=== PATIENT | female | born 1940 | race Caucasian/White ===

== ENCOUNTER 2018-12-31 20:06 | Emergency (ER) | payer MEDICARE ==
[2018-12-31] MEDS ORDERED: 0.9 % SODIUM CHLORIDE 1,000 ML BAG IV ONE (20:10)
[2018-12-31 20:16] LABS: BASO % 0.4 % (0-6); EOS % 0.6 % (0-6); GRAN % 61.2 % (47-80); HEMOGLOBIN 14.9 gm/dl (11.6-16.0); LYMPH % 25.8 % (16-45); MEAN CELL VOLUME 87.5 fl (81-97); MEAN CORPUSCULAR HEMOGLOBIN 29.6 pg (27-33); MEAN CORPUSCULAR HGB CONC 33.9 g/dl (32-36); MEAN PLATELET VOLUME 9.7 fl (7.4-10.4); PLATELET COUNT 260 K/uL (130-400); RED BLOOD COUNT 5.03 M/uL (3.80-5.40); RED CELL DISTRIBUTION WIDTH 14.4 % (11.5-14.5); WHITE BLOOD COUNT W/O DIFF 10.1 K/uL (4.2-12.2)
--- NOTE | 2018-12-31 20:23 | Emergency Department Record ---
History of Present Illness - General Chief Complaint: Syncope Stated Complaint: NEARLY FAINTED Time Seen by Provider: 12/31/18 20:10 Source: Patient, Family Mode of Arrival: EMS Limitations: No limitations - History of Present Illness Initial Comments: The patient is here due to becoming weak and lightheaded at a wedding this evening. She has been outside in the heat for some time and then was sitting when she became lightheaded. Per witnesses the patient suddenly become pale, her eyes rolled back and she had a brief seizure while sitting. The patient did not fall and then she seemed to have mild R sided weakness for 2-3 minutes. Bystanders called 911 and by the time EMS arrived the patient was awake, alert with no focal deficits. The patient believes she was just in the heat to long and had not drank much fluid. There was never any speech issues, TENORIO, CP or SOB. The patient has had similar issues with R sided weakness briefly in the past but did not have it evaluated. MD Complaint: Nazlini faint Onset/Timin -: Minutes(s) Prodromal Symptoms: None Injuries Sustained Associated with Event: None Current Symptoms: None Treatments Prior to Arrival: None - [place] Coma Scale Eye Response: (4) Open spontaneously Motor Response: (6) Obeys commands Verbal Response: (5) Oriented Elena Total: 15 - Related Data Home Medications Medication Instructions Recorded Confirmed Last Taken Metoprolol Tartrate 25 mg PO BID 12/31/18 12/31/18 12/31/18 Ranitidine HCl [Zantac] 150 mg PO DAILY 12/31/18 12/31/18 12/31/18 Allergies Allergy/AdvReac Type Severity Reaction Status Date / Time sulfamethoxazole Allergy RASH Verified 12/31/18 20:18 [From Bactrim] trimethoprim [From Bactrim] Allergy RASH Verified 12/31/18 20:18 Travel Screening - Travel/Exposure Within Last 30 Days Have you traveled within the last 30 days?: No - Travel/Exposure Within Last Year Have you traveled outside the [place] in the last year?: No - Additonal Travel Details Have you been exposed to anyone with a communicable illness?: No - Travel Symptoms Symptom Screening: None Review of Systems Constitutional: Denies: Chills, Fever Eyes: Denies: Eye discharge ENT: Denies: Congestion Respiratory: Denies: Cough, Dyspnea Cardiovascular: Denies: Chest pain Endocrine: Reports: Fatigue Gastrointestinal: Denies: Nausea Genitourinary: Denies: Dysuria Musculoskeletal: Denies: Arthralgia Skin: Denies: Bruising Past Medical History - SOCIAL HISTORY Smoking Status: Never smoker Alcohol Use: None Drug Use: None - RESPIRATORY Hx Respiratory Disorders: No - CARDIOVASCULAR Hx Cardio Disorders: Yes Hx Hypertension: Yes - NEURO Hx Neuro Disorders: No - GI Hx GI Disorders: No - Hx Genitourinary Disorders: No - ENDOCRINE Hx Endocrine Disorders: No - MUSCULOSKELETAL Hx Musculoskeletal Disorders: No - PSYCH Hx Psych Problems: No - HEMATOLOGY/ONCOLOGY Hx Hematology/Oncology Disorders: No Family Medical History Any Significant Family History?: No Physical Exam - General General Appearance: Alert, Oriented x3, Cooperative, No acute distress - Head Head exam: Atraumatic, Normocephalic, Normal inspection - Eye Eye exam: Normal appearance, PERRL, EOMI - ENT ENT exam: Normal exam Throat exam: Normal inspection. negative: Tonsillar erythema, Tonsillar exudate - Neck Neck exam: Normal inspection, Full ROM. negative: Tenderness - Respiratory Respiratory exam: Normal lung sounds bilaterally. negative: Respiratory distress - Cardiovascular Cardiovascular Exam: Regular rate, Normal rhythm, Normal heart sounds. negative: Diastolic murmur, Systolic murmur - GI/Abdominal GI/Abdominal exam: Soft, Normal bowel sounds. negative: Tenderness - Extremities Extremities exam: Normal inspection, Full ROM, Normal capillary refill. negative: Tenderness - Back Back exam: Reports: Normal inspection - Neurological Neurological exam: Alert, CN II-XII intact, Normal gait, Oriented X3, Other (Neg Drift and Rhomberg.). negative: Abnormal gait, Altered, Motor sensory deficit - Psychiatric Psychiatric exam: negative: Anxious - Skin Skin exam: negative: Rash Course Vital Signs 12/31/18 20:09 Temperature 97.8 F Pulse Rate [ 94 H Pulse Ox Probe] Respiratory 20 Rate Blood Pressure 107/64 [Left Arm] Pulse Ox 95 - Reevaluation(s) Reevaluation #1: The patient is doing very well at this time. She is still back to normal and neuro intact. I did recommend hospital transfer for a TIA workup and the patient agreed with the plan. I then did discuss the case with Dr. May at [facility] and she did accept the patient in transfer. 12/31/18 22:00 Medical Decision Making - Data Complexity MDM Data: Labs Ordered and/or Reviewed, X-Ray Ordered and/or Reviewed, EKG Ordered and/or Reviewed - Lab Data Result diagrams: 12/31/18 19:59 12/31/18 19:59 Lab Results 12/31/18 Range/Units 19:59 WBC 10.1 (4.2-12.2) K/uL RBC 5.03 (3.80-5.40) M/uL Hgb 14.9 (11.6-16.0) gm/dl Hct 44.0 (35.0-47.0) % MCV 87.5 (81-97) fl MCH 29.6 (27-33) pg MCHC 33.9 (32-36) g/dl RDW 14.4 (11.5-14.5) % Plt Count 260 (130-400) K/uL MPV 9.7 (7.4-10.4) fl Gran % 61.2 (47-80) % Lymphocytes % 25.8 (16-45) % Monocytes % 12.0 H (0-9) % Eosinophils % 0.6 (0-6) % Basophils % 0.4 (0-6) % Absolute Neutrophils 6.20 - EKG Data -: EKG Interpreted by Al EKG: No Acute Changes, Normal EKG (poss mild AL interval prolongation.) - Radiology Data Radiology results: Report reviewed (Head CT: Neg for acute changes. nonspecific small vessel ischemic changes, fluid in sinuses.) Disposition Disposition: Transfer Clinical Impression: TIA (transient ischemic attack) Disposition: Acute Care Hospital Transfer Transfer To: [facility] Reason For Transfer: Neurology Accepting Physician: Lalo Time Discussed w/Accepting Physician: 22:02 Condition: (2) Stable Forms: Patient Portal Access Time of Disposition: 22:02 Quality - Quality Measures Quality Measures: N/A - Blood Pressure Screening View Details: Yes Does Patient Have Any of the Following: No Blood Pressure Classification: Hypertensive Reading Systolic Measurement: 155 Diastolic Measurement: 68 Screening for High Blood Pressure: < First Hypertensive BP, F/U Documented > [G8950] First Hypertensive Follow-up Interventions: Referral to alternative/primary care provider.
[2018-12-31 20:31] LABS: BILIRUBIN,TOTAL 0.8 mg/dL (0.2-1.0); CREATININE 1.5 mg/dL (0.5-0.9)
[2018-12-31 20:32] LABS: TOTAL PROTEIN 8.1 g/dL (6.6-8.7)
[2018-12-31 20:36] LABS: ALB/GLOB RATIO 1.1 (1.1-1.8); ALBUMIN 4.3 g/dL (4.0-5.0)
[2018-12-31] MEDS ORDERED: ASPIRIN 325 MG TABLET PO ONE (20:56)
--- NOTE | 2019-01-02 13:22 | CT SCAN REPORT ---
EXAM: CT SCAN OF THE HEAD WITHOUT CONTRAST HISTORY: NEAR SYNCOPE. RIGHT LOWER EXTREMITY WEAKNESS. LIGHTHEADEDNESS. TECHNIQUE: Standard CT imaging of the brain was performed without contrast. Additional coronal and sagittal reformatted images were also performed. Comparison: None. Hand dominance: Right. Encounter: Not applicable. FINDINGS: There is mild generalized atrophy. The ventricles and subarachnoid spaces are otherwise normal. An 8 x 8 mm densely calcified right parafalcine meningioma is present within the parietal region. There is a tiny 5 x 4 mm left frontal calcified meningioma. There are mild chronic small vessel ischemic changes within the periventricular and subcortical white matter at both cerebral hemispheres. There is no intraaxial mass, mass effect, hemorrhage, visible acute infarct, or abnormal extraaxial fluid. The skull is intact. The patient is status post left mastoidectomy. There is a nonspecific effusion involving the remaining left mastoid air cells. A tiny amount of fluid is present within the right mastoid air cells. There is near complete opacification of the right posterior ethmoid air cells as well as the right sphenoid sinus. There is associated fluid within the right sphenoid sinus. Moderate mucosal thickening is present within the remaining ethmoid and right maxillary sinuses. Post surgical changes are present within the right maxillary sinus. The orbits appear normal. IMPRESSION: 1. NO ACUTE INTRACRANIAL ABNORMALITY. 2. MILD ATROPHY AND CHRONIC SMALL VESSEL ISCHEMIC CHANGES. 3. SMALL INCIDENTAL MENINGIOMAS. 4. RIGHT ETHMOID AND SPHENOID SINUSITIS. 5. NONSPECIFIC FLUID WITHIN THE MASTOID AIR CELLS BILATERALLY. JOB NUMBER: [id number] MTDD
== END 2018-12-31 22:43 | disposition short-term general hospital (02) ==
LOC: ER 20:06
DX: G45.9 Transient cerebral ischemic attack, unspecified (principal); R55 Syncope and collapse
CPT/HCPCS: 70450; 80053; 85025; 93005; 93010; 99285; J7030